=== PATIENT | male | born 1990 | race Caucasian/White ===

== ENCOUNTER 2019-06-06 13:12 | Emergency (ER) | payer SELFPAY ==
[2019-06-06 13:17] VITALS: BP 139/82
[2019-06-06] MEDS ORDERED: DEXAMETHASONE SOD PHOS INJ 10 MG/1 ML VIAL IM ONE (13:40)
--- NOTE | 2019-06-06 13:45 | ER Document Report ---
HPI - HPI Time Seen by Provider: 06/06/19 13:26 Pain Level: Denies Notes: Patient is an otherwise healthy 28-year-old male presenting to the emergency department with exposure to poison devyn. Patient reports he was cutting down trees 5 days ago, he woke up the next morning with a rash on both of his arms. He states he has tried using Zyrtec and calamine lotion without relief. He additionally states he has tried oatmeal baths. He states that he now has redness and itching to his face. He denies any other medical issues and does not take any medications daily. - EENT EENT: DENIES: Sore Throat, Ear Pain, Eye problems Past Medical History - General Information source: Patient - Social History Smoking Status: Current Every Day Smoker Chew tobacco use (# tins/day): No Frequency of alcohol use: Social Drug Abuse: None Family History: Reviewed & Not Pertinent Patient has suicidal ideation: No Patient has homicidal ideation: No - Medical History Medical History: Negative Renal/ Medical History: Denies: Hx Peritoneal Dialysis Surgical Hx: Negative - Immunizations Immunizations up to date: Yes Vertical Provider Document - CONSTITUTIONAL Notes: PHYSICAL EXAMINATION: GENERAL: Well-appearing, well-nourished and in no acute distress. HEAD: Atraumatic, normocephalic. EYES: Pupils equal round extraocular movements intact, conjunctiva are normal. ENT: Nares patent NECK: Normal range of motion LUNGS: No respiratory distress Musculoskeletal: Normal range of motion NEUROLOGICAL: Normal speech, normal gait. PSYCH: Normal mood, normal affect. SKIN: Scattered areas of red inflamed patches to his bilateral arms and face. No evidence of abscess. - INFECTION CONTROL TRAVEL OUTSIDE OF THE [place] IN LAST 30 DAYS: No Course - Re-evaluation Re-evalutation: Exam consistent with poison devyn exposure. Patient will be started on steroids. Patient does have a small area of exposure on his face, this is near his eye but not touching the orbit yet. I will start patient on some antibiotics for this to ensure that this does not develop into a orbital cellulitis. Encourage good handwashing and patient to try to not touch his face. Patient is in agreements with this plan. Patient will be discharged home. The patient's emergency department workup and current diagnosis were explained to the patient and or family. Follow-up instructions were provided. Medications if prescribed were discussed. Instructions for when to return to the emergency department including specific worrisome symptoms were discussed with the patient and/or family. - Vital Signs Vital signs: Temp Pulse Resp BP Pulse Ox 97.6 F 96 16 139/82 H 99 06/06/19 13:15 06/06/19 13:15 06/06/19 13:15 06/06/19 13:15 06/06/19 13:15 Discharge - Discharge Clinical Impression: Poison devyn Cellulitis Qualifiers: Site of cellulitis: face Qualified Code(s): L03.211 - Cellulitis of face Condition: Stable Disposition: HOME, SELF-CARE Additional Instructions: Your being seen today for poison devyn. Please take the steroid taper pack as directed. Take antibiotics as prescribed. No hot showers. You may try [id number] calamine lotion. Return for any difficulty breathing, vomiting, passing out, or any other symptoms that are worrisome to you. Prescriptions: Prednisone [Sterapred Ds] 1 pkg PO ASDIR PRN 12 Days [email or web address] PRN Reason: Forms: Return to Work
== END 2019-06-06 13:50 | disposition home or self-care (01) ==
LOC: ER 13:12
DX: L23.7 Allergic contact dermatitis due to plants, except food (principal); L03.211 Cellulitis of face; F17.200 Nicotine dependence, unspecified, uncomplicated
CPT/HCPCS: 99282; 96372; J1100